=== PATIENT | female | born 1965 | race Hispanic/Latino ===

== ENCOUNTER → 2020-11-22 | Outpatient (CLI) | payer OTHER | END | disposition home or self-care (01) | LOC: RAH 14:15 | PROVIDERS: ATTEND Internal Medicine Cardiovascular Disease | DX: Z13.6 Encounter for screening for cardiovascular disorders (principal) | CPT/HCPCS: 75571 ==

== ENCOUNTER 2022-05-23 06:38 | Day surgery (SDC) | payer BC ==
[2022-05-21 09:46] LABS: BASOPHILS % (AUTO) 0.8 % (0.0-5.0); EOSINOPHILS % (AUTO) 2.6 % (0.0-8.0); LYMPHOCYTES % (AUTO) 37.2 % (21.0-51.0); MEAN CORPUSCULAR HEMOGLOBIN 29.1 pg (27.0-33.0); MEAN CORPUSCULAR HGB CONC 34.6 g/dL (32.0-36.0); NEUTROPHILS % (AUTO) 49.2 % (40.0-77.0); PLATELET COUNT (AUTO) 230 K/uL (130-400); RED BLOOD CELL COUNT(AUTO) 4.88 MIL/uL (4.00-5.50); RED CELL DISTRIBUTION WIDTH 12.7 % (11.0-15.5); WHITE BLOOD COUNT (AUTO) 5.3 K/uL (4.8-10.8)
[2022-05-22 09:15] VITALS: BP 97/56
[2022-05-23] VITALS (19 sets, daily range): BP systolic 81–109; BP diastolic 33–71
[~2022-05-23] VITALS: Ht 160 cm; Wt 61.7 kg
[~2022-05-23 06:38] MED LIST: VITAMIN D PO
[2022-05-23] MEDS: LACTATED RINGERS 1000ML 1,000 ML IV SCH ×2 (07:03→10:00)
[2022-05-23] MEDS ORDERED: NEOSTIGMINE 5MG/5ML SYR IV ONE (07:13)
[2022-05-23] MEDS ORDERED: DEXAMETHASONE SOD PHOSPHATE 10MG/ML 1ML VIAL ONE (07:13)
[2022-05-23] MEDS ORDERED: SUCCINYLCHOLINE CHLORIDE 20 MG/ML 10 ML VIAL ONE ×2 (07:13→09:41)
[2022-05-23] MEDS ORDERED: ONDANSETRON 4MG INJ ONE (07:13)
[2022-05-23] MEDS ORDERED: GLYCOPYRROLATE 1 MG/5 ML SYRINGE ONE (07:13)
[2022-05-23] MEDS ORDERED: ROCURONIUM 10MG/1ML SYR 10 MG/ML ML ONE (07:14)
[2022-05-23] MEDS ORDERED: PROPOFOL 10 MG/ML 20ML VIAL IV ONE (07:14)
[2022-05-23] MEDS ORDERED: FENTANYL CITRATE PF 50 MCG/1 ML 2ML VIAL ONE (07:14)
[2022-05-23] MEDS ORDERED: MIDAZOLAM HCL 1 MG/ML 5ML VIAL ONE (07:16)
[2022-05-23] MEDS ORDERED: MEPERIDINE-PF 25 MG/ML SYG ONE (09:49)
== END 2022-05-23 12:20 | disposition home or self-care (01) ==
LOC: DAH 06:38
PROVIDERS: ATTEND Obstetrics & Gynecology
DX: N95.0 Postmenopausal bleeding (principal); Z79.899 Other long term (current) drug therapy; Z90.49 Acquired absence of other specified parts of digestive tract; Z98.891 History of uterine scar from previous surgery
CPT/HCPCS: 84703; 85025; 87426; 36415; 58558; A4663; J7120 ×2; A4351; A4355; J3010; J3490; J1100; J2710; J0330 ×2; J2250; J2704; J2405; J2175; A4215; A4223; A4222; A4221; A4335; J7030; A4600